=== PATIENT | male | born 1970 | race Caucasian/White ===

== ENCOUNTER 2017-02-23 14:52 | Emergency (ER) | payer MEDICAID, OTHER ==
[~2017-02-23] VITALS: Wt 96.5 kg
[2017-02-23] MEDS ORDERED: SOD CHLORIDE 0.9% 1,000 ML IV STA (15:38)
[2017-02-23 16:09] LABS: HEMATOCRIT 32.6 % (42.0-52.0); HEMOGLOBIN 8.7 g/dl (14.0-18.0); MEAN CORPUSCULAR HEMOGLOBIN 15.8 pg (29.0-33.0); MEAN CORPUSCULAR HGB CONC 26.7 g/dl (32.0-37.0); MEAN CORPUSCULAR VOLUME 59.4 fl (82.0-101.0); PLATELET COUNT 272 10^3/UL (140-415); RED BLOOD COUNT 5.49 10^6/ul (4.70-6.10); RED CELL DISTRIBUTION WIDTH 21.9 % (11.5-14.5); WHITE BLOOD COUNT 7.2 10^3/ul (4.8-10.8)
[2017-02-23 16:10] LABS: ABNORMAL IP MESSAGE 1; BASOPHIL # 0.1 10^3/ul (0.0-0.1); BASOPHILS % 0.7 % (0.0-2.0); EOSINOPHILS # 0.1 10^3/ul (0.0-0.5); EOSINOPHILS % 0.7 % (0.0-7.0); LYMPHOCYTES # 0.9 10^3/ul (0.8-2.9); MONOCYTE # 0.6 10^3/ul (0.3-0.9); MONOCYTES % 8.8 % (0.0-11.0); NEUTROPHIL # 5.5 10^3/ul (1.6-7.5); NEUTROPHILS % 76.1 % (39.0-77.0); POSITIVE DIFF @See below
[2017-02-23 16:18] LABS: INR 0.88; PT RATIO 0.9
[2017-02-23 16:19] LABS: PARTIAL THROMBOPLASTIN TIME 28.7 Sec (25.0-35.0)
[2017-02-23 16:23] LABS: ALBUMIN 3.9 g/dl (3.3-4.9); BILIRUBIN,INDIRECT 0.1 mg/dl (0-1.1); BILIRUBIN,TOTAL 0.1 mg/dl (0.2-1.3); CALCIUM 9.2 mg/dl (8.4-10.2); CREATININE 1.12 mg/dl (0.61-1.24); POTASSIUM 4.2 mmol/L (3.5-5.1); TOTAL PROTEIN 7.8 g/dl (6.1-8.1)
--- NOTE | 2017-02-23 16:48 | RADRPT ---
PROCEDURE: Chest x-ray CLINICAL INDICATION: Upper GI bleed TECHNIQUE: Chest single view COMPARISON: None FINDINGS: The heart is normal in size. The pulmonary vessels are normal in caliber. The lungs are clear. Th e costophrenic angles are sharp. The visualized bony thorax is unremarkable. IMPRESSION: No acute cardiopulmonary disease. RPTAT: HH .Reynaldo Curtis MD, Date Time Electronically viewed and signed by .Reynaldo Curtis MD, on 02/23/2017 16:47 .W/
[2017-02-23] MEDS ORDERED: D-ME473S2 PO (16:51)
[2017-02-23] MEDS ORDERED: AZIT250T13 PO (16:53)
[2017-02-23] MEDS ORDERED: IBUP-1542 PO (16:53)
[2017-02-23] MEDS ORDERED: [UNRECOGNIZED DRUG - CODE] IH (16:55)
[2017-02-23] MEDS ORDERED: ALBU8.5H3 INH (17:17)
[2017-02-23] MEDS ORDERED: FER325 PO (17:17)
[2017-02-23] MEDS ORDERED: NAPR-688 PO (17:17)
[2017-02-23 17:55] VITALS: BP 115/82; PULSE 88; RESP 20
--- NOTE | 2017-02-23 19:28 | ERD ---
ER Documentation Chief Complaint Chief Complaint flu like symptoms/malaise, refferred by urgent care for hgb7.5 HPI 38-year-old man referred here by a nearby clinic for anemia. Patient states he does have a long history of anemia but denies previous transfusions. He states he is here for nasal congestion, rhinorrhea, sore throat, body aches, and recent cough. He suspects he has the flu. He denies recent travel or antibiotic use, no fevers or chills, no blood per rectum or melena, no weight loss, no vomiting or diarrhea. ROS All systems reviewed and are negative except as per history of present illness. Medications Home Meds Active Scripts Albuterol Sulfate* (Proair HFA*) 8.5 Gm Hfa.aer.ad, 2 PUFF INH Q6H Y for COUGH, #1 INHALER Prov:SAYRA DAI MD 02/23/17 Naproxen* (Naproxen*) 500 Mg Tablet, 500 MG PO BID Y for PAIN, #30 TAB Prov:SAYRA DAI MD 02/23/17 Ferrous Sulfate* (Ferrous Sulfate*) 325 Mg Tabec, 325 MG PO BID, #60 TAB Prov:SAYRA DAI MD 02/23/17 Reported Medications Zanamivir (Relenza) 5 Mg Blst.w.dev, 10 MG IH BID 02/23/17 Ibuprofen* (Ibuprofen*) 600 Mg Tablet, 600 MG PO Q6H, TAB 02/23/17 Azithromycin* (Azithromycin*) 250 Mg Tablet, 250 MG PO DAILY, #6 TAB TAKE 2 TAB FOR 1-ST DAY AND THEN 1 TAB DAILY, START DATE 02/21/17 02/23/17 Dextromethorphan Hb-Promethazine Hcl* (Promethazine DM* Syrup) 473 Ml Syrup, 5 ML PO Q6 Y for COUGH, ML 02/23/17 Allergies Allergies: Coded Allergies: No Known Allergy (Unverified , 02/23/17) PMhx/Soc Anemia Hx Cardiac Disorders: Yes (ANEMIA ) Hx Alcohol Use: Yes (SOCIALLY ) Hx Substance Use: No Hx Tobacco Use: No Smoking Status: Never smoker FmHx Family History: No diabetes Physical Exam Vitals Vital Signs Date Time Temp Pulse Resp B/P Pulse Ox O2 Delivery O2 Flow Rate FiO2 02/23/17 17:55 88 20 115/82 98 Room Air 02/23/17 14:55 97.9 100 18 162/89 100 Physical Exam GENERAL: Well-developed, well-nourished, well-hydrated, in no apparent distress , looks nontoxic in appearance HEENT: Moist mucous membranes, pink conjunctiva, no cervical spine tenderness or step-off deformities, no goiter, no jaundice or icterus, extraocular movements intact without pain. No submandibular induration, and no pharyngeal erythema NEURO: Alert and oriented 3, cranial nerves II through XII intact bilaterally, pupils equal round reactive to light, no focal deficits or facial asymmetry, sensation intact distally Strength 5/5 in upper and lower extremities bilaterally CARDIAC: Regular rate and rhythm, no murmurs rubs or gallops LUNGS: Clear bilaterally no wheezing crackles or stridor ABDOMEN: Soft nontender, no guarding, no rigidity, no rebound, no psoas sign no obturator sign. Normoactive bowel sounds SKIN: Warm and dry to touch, no abrasions, contusions, or hematomas, no lacerations, no ecchymosis, no target lesions, and without ulcers EXTREMITIES: No clubbing cyanosis or edema, calves are bilaterally symmetrical, no Homans sign, no popliteal cord sign. Distal pulses equal and bilateral PSYCH: Normal affect without agitation or irritability Result Diagram: 02/23/17 1550 02/23/17 1550 Results 24 hrs Laboratory Tests Test 02/23/17 15:50 White Blood Count 7.210^3/ul Red Blood Count 5.4910^6/ul Hemoglobin 8.7g/dl Hematocrit 32.6% Mean Corpuscular Volume 59.4fl Mean Corpuscular Hemoglobin 15.8pg Mean Corpuscular Hemoglobin Concent 26.7g/dl Red Cell Distribution Width 21.9% Platelet Count 78719^3/UL Mean Platelet Volume fl Neutrophils % 76.1% Lymphocytes % 13.0% Monocytes % 8.8% Eosinophils % 0.7% Basophils % 0.7% Nucleated Red Blood Cells % 0.0/100WBC Neutrophils # 5.510^3/ul Lymphocytes # 0.910^3/ul Monocytes # 0.610^3/ul Eosinophils # 0.110^3/ul Basophils # 0.110^3/ul Nucleated Red Blood Cells # 0.010^3/ul Prothrombin Time 12.0Sec Prothrombin Time Ratio 0.9 INR International Normalized Ratio 0.88 Activated Partial Thromboplast Time 28.7Sec Sodium Level 143mmol/L Potassium Level 4.2mmol/L Chloride Level 108mmol/L Carbon Dioxide Level 22mmol/L Anion Gap 17 Blood Urea Nitrogen 16mg/dl Creatinine 1.12mg/dl Glucose Level 106mg/dl Calcium Level 9.2mg/dl Total Bilirubin 0.1mg/dl Direct Bilirubin 0.00mg/dl Indirect Bilirubin 0.1mg/dl Aspartate Amino Transf (AST/SGOT) 34IU/L Alanine Aminotransferase (ALT/SGPT) 56IU/L Alkaline Phosphatase 78IU/L Total Protein 7.8g/dl Albumin 3.9g/dl Globulin 3.90g/dl Albumin/Globulin Ratio 1.00 Lipase 101U/L Current Medications Medications (Trade) Dose Ordered Sig/Lisa Route PRN Reason Start Time Stop Time Status Last Admin Dose Admin Sodium Chloride (NS) 1,000 ml @ 1,000 mls/hr Q1H STAT IV 02/23/17 15:38 02/23/17 16:37 DC 02/23/17 16:23 Procedures/MDM IV line was established 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 Patient was afebrile I administered 1 L normal saline intravenously. Patient refused analgesics. Influenza AB swabs were negative. One AP view of the chest performed, read by me reveals no acute infiltrates, normal mediastinum, sharp costophrenic and cardiac borders, no air under the diaphragm. Otherwise unremarkable chest x-ray. CBC revealed anemia with a hemoglobin of 8.7, electrolytes were unremarkable, liver function tests normal, coagulation profile was unremarkable. Patient noted again that he does have a long history of anemia but denies recent dizziness or loss of consciousness. He denies prior blood transfusion. He has not been using iron supplementation so I will prescribe iron supplements until he can follow-up with his PMD as an outpatient. Risks of IV PRBC transfusion outweigh any benefits at this time especially because the patient is fairly asymptomatic. Differential diagnoses considered, included but not limited to acute coronary syndrome, pulmonary embolism, aortic dissection, abdominal aortic aneurysm, sepsis, stroke, meningitis, encephalitis, pneumonia, appendicitis, cholecystitis , bowel obstruction, pyelonephritis, nephrolithiasis, cystitis, as well as metabolic, hematologic, and electrolyte abnormalities. As well as abscess, cellulitis, fractures, and dislocations. Patient feels much better at this time, and vital signs are normal, symptoms have improved. I did give strict instructions to return to the ED if symptoms continue or worsen, patient will otherwise follow-up with primary care physician. Patient understood instructions and agreed to plan. Disclaimer: Inadvertent spelling and grammatical errors are likely due to EHR/ dictation software use and do not reflect on the overall quality of patient care. Also, please note that the electronic time recorded on this note does not necessarily reflect the actual time of the patient encounter. Departure Diagnosis: Primary Impression: Anemia Anemia type: iron deficiency Iron deficiency anemia type: unspecified iron deficiency Qualified Code: D50.9 - Iron deficiency anemia, unspecified iron deficiency anemia type Additional Impression: URI (upper respiratory infection) URI type: acute nasopharyngitis (common cold) Qualified Code: J00 - Acute nasopharyngitis Condition: Good Patient Instructions: Anemia, Iron Deficiency (Adult), Uri, Viral, No Abx ( Adult) SAYRA DAI MD Feb 23, 2017 18:04
== END 2017-02-23 17:59 | disposition home or self-care (01) ==
LOC: E/R 14:52
DX: D50.9 Iron deficiency anemia, unspecified (principal); J00 Acute nasopharyngitis [common cold]; R07.9 Chest pain, unspecified
CPT/HCPCS: 36415; 71010; 80053; 83690; 85025; 85610; 85730; 86850; 86900; 86901; 87400; J7030; Z7502